=== PATIENT | male | born 1955 | race Caucasian/White ===

== ENCOUNTER 2022-08-02 07:09 | Inpatient (IN) ==
[2022-08-02 07:39] LABS: ABS Basophils 0.1 10^3/uL (0.0-0.1); ABS Eosinophils 0.1 10^3/uL (0.0-0.5); ABS Lymphocytes 1.4 10^3/uL (1.0-4.8); ABS Monocytes 1.4 10^3/uL (0.0-1.1); ABS Neutrophils 12.1 10^3/uL (1.5-7.6); Eosinophil % 0.5 %; Hematocrit 30.1 % (38-53); Hemoglobin 9.7 g/dL (13.2-16.3); Lymphocyte % 9.3 %; Mean Corpuscular Hemoglobin 26.5 pg (27-33); Mean Corpuscular Hgb Conc 32.1 g/dL (31-36); Mean Corpuscular Volume 82.5 fL (80-97); Platelet Count 618 10^3/uL (150-450); Red Blood Count 3.65 10^6/uL (4.06-5.63); Red Cell Distribution Width 14.7 % (12-17); White Blood Count 15.1 10^3/uL (3.6-10.2)
[2022-08-02 07:44] LABS: INR 1.54 (0.88-1.18)
[2022-08-02] MEDS ORDERED: Lactated Ringers 1000 ml BAG 1,000 ML IV ONE (08:40)
[2022-08-02] MEDS ORDERED: Morphine 4 MG/ML VIAL (1 ml) IV ONE ×2 (08:40→10:46)
[2022-08-02 09:13] LABS: High Sensitivity Troponin 1 Hr 10 pg/mL (<20)
[2022-08-02 09:27] LABS: Albumin 3.6 g/dL (3.2-5.2); Albumin/Globulin Ratio 1.2 (1-3); Calcium 9.6 mg/dL (8.6-10.3); Creatinine, Serum 0.8 mg/dL (0.67-1.17); Globulin 3.1 g/dL (2-4); Potassium 4.4 mmol/L (3.5-5.0); Total Bilirubin 0.6 mg/dL (0.2-1.0); Total Protein 6.7 g/dL (6.4-8.9); eGFR CKD-EPI 95.8 (>60)
[2022-08-02] MEDS ORDERED: Iohexol 350 (CONTRAST) 500 ML MDV IV ONE (10:38)
[2022-08-02] MEDS ORDERED: Heparin DRIP 25,000 UNITS BAG 25,000 UNITS/500 ML BAG IV SCH (11:45)
[2022-08-02] MEDS ORDERED: Heparin 5000 UNITS/ML 1 mL VIAL IV PRN (12:00)
[2022-08-02] MEDS ORDERED: cefTRIAXone 1 gm/50 mL D5W 1 GM/50 ML BAG IV ONE (12:02)
[2022-08-02] MEDS ORDERED: Azithromycin 500 mg/250 ml NS 500 MG/250 ML BAG IVPB ONE (12:11)
[2022-08-02] MEDS: Morphine 2 MG/ML SYRINGE IV PRN (13:08)
[2022-08-02] MEDS ORDERED: Gadoteridol (CONTRAST) 279.3 MG/ML 10 ML IV ONE (15:26)
[2022-08-02] MEDS ORDERED: Enoxaparin 80 MG/0.8 ML SYR SUBCUT SCH (15:30)
[2022-08-02] MEDS ORDERED: Albuterol 2.5mg/3 ml (0.083%) NEB.SOLN INH PRN (15:38)
[2022-08-03] MEDS ORDERED: Enoxaparin 80 MG/0.8 ML SYR SUBCUT SCH (06:00)
[2022-08-03 06:36] LABS: Calcium 9.5 mg/dL (8.6-10.3)
[2022-08-03 06:42] LABS: Creatinine, Serum 0.62 mg/dL (0.67-1.17); eGFR CKD-EPI 103.5 (>60)
[2022-08-03 06:43] LABS: ABS Basophils 0.1 10^3/uL (0.0-0.1); ABS Eosinophils 0.1 10^3/uL (0.0-0.5); ABS Lymphocytes 1.6 10^3/uL (1.0-4.8); ABS Monocytes 1.4 10^3/uL (0.0-1.1); ABS Neutrophils 9.2 10^3/uL (1.5-7.6); ABS Nucleated RBC 0.01 10^3/ul; Eosinophil % 0.9 %; Hematocrit 30.7 % (38-53); Hemoglobin 9.9 g/dL (13.2-16.3); Lymphocyte % 12.6 %; Mean Corpuscular Hemoglobin 26.5 pg (27-33); Mean Corpuscular Hgb Conc 32.4 g/dL (31-36); Mean Corpuscular Volume 81.9 fL (80-97); Mean Platelet Volume 7.4 fL (7.5-11.2); Platelet Count 494 10^3/uL (150-450); Red Blood Count 3.75 10^6/uL (4.06-5.63); Red Cell Distribution Width 14.6 % (12-17); White Blood Count 12.4 10^3/uL (3.6-10.2)
[2022-08-03] MEDS ORDERED: Heparin 5000 UNITS/ML 1 mL VIAL IV SCH (10:00)
[2022-08-03 10:29] LABS: ABS Basophils 0.1 10^3/uL (0.0-0.1); ABS Eosinophils 0.1 10^3/uL (0.0-0.5); ABS Lymphocytes 1.7 10^3/uL (1.0-4.8); ABS Monocytes 1.2 10^3/uL (0.0-1.1); ABS Neutrophils 10.6 10^3/uL (1.5-7.6); Eosinophil % 0.5 %; Hematocrit 28.3 % (38-53); Hemoglobin 8.9 g/dL (13.2-16.3); Lymphocyte % 12.4 %; Mean Corpuscular Hgb Conc 31.5 g/dL (31-36); Mean Corpuscular Volume 82.4 fL (80-97); Mean Platelet Volume 6.9 fL (7.5-11.2); Platelet Count 563 10^3/uL (150-450); Red Blood Count 3.44 10^6/uL (4.06-5.63); Red Cell Distribution Width 14.5 % (12-17); White Blood Count 13.7 10^3/uL (3.6-10.2)
[2022-08-03 10:38] LABS: Blood Urea Nitrogen 13 mg/dL (6-24); Creatinine, Serum 0.65 mg/dL (0.67-1.17)
[2022-08-03 10:54] LABS: PSA Screen Ultra Sensitive 10.376 ng/mL (0-4.000)
[2022-08-03] MEDS: Heparin DRIP 25,000 UNITS BAG 25,000 UNITS/500 ML BAG IV SCH (11:15)
[2022-08-03 11:25] LABS: % Iron Saturation 10 % (15-55); .Transferrin 146 mg/dL (203-362); Iron < 20 ug/dL (50-212); Total Iron Binding Capacity 204 mcg/dL (250-450); Unsaturated Iron Binding 184 ug/dL
[2022-08-03] MEDS: CMC:Bicalutamide 50 mg TAB (NF) PO SCH (11:31)
[2022-08-03 11:52] LABS: Vitamin B12 > 1450 pg/mL (180-914)
[2022-08-03 12:01] LABS: Ferritin > 1500.0 ng/mL (24-336)
[2022-08-03 14:32] LABS: TSH Ultra Thyroid Stim Horm 0.45 mcIU/mL (0.34-5.60)
[2022-08-03 14:53] LABS: Corrected Retic Count 1.1 % (0.5-1.5); Hematocrit for Retic CNT 27.9 % (38-53); Immature Retic Fraction 0.42; RBC Retic Count 3.38 10^6/ul (4.06-5.63)
[2022-08-03] MEDS: cefTRIAXone 1 gm/50 mL D5W 1 GM/50 ML BAG IV SCH (15:04)
[2022-08-03] MEDS ORDERED: Gadoteridol (CONTRAST) 279.3 MG/ML 10 ML IV ONE (21:42)
[2022-08-04 07:38] LABS: ABS Basophils 0.1 10^3/uL (0.0-0.1); ABS Eosinophils 0.1 10^3/uL (0.0-0.5); ABS Lymphocytes 1.4 10^3/uL (1.0-4.8); ABS Monocytes 1.4 10^3/uL (0.0-1.1); ABS Neutrophils 11.4 10^3/uL (1.5-7.6); ABS Nucleated RBC 0.01 10^3/ul; Eosinophil % 0.9 %; Hematocrit 28.1 % (38-53); Lymphocyte % 9.6 %; Mean Corpuscular Hemoglobin 26.3 pg (27-33); Mean Corpuscular Hgb Conc 32.1 g/dL (31-36); Mean Corpuscular Volume 82.1 fL (80-97); Mean Platelet Volume 7.1 fL (7.5-11.2); Platelet Count 556 10^3/uL (150-450); Red Blood Count 3.42 10^6/uL (4.06-5.63); Red Cell Distribution Width 14.6 % (12-17); White Blood Count 14.3 10^3/uL (3.6-10.2)
[2022-08-04 07:58] LABS: Calcium 9.8 mg/dL (8.6-10.3); Creatinine, Serum 0.65 mg/dL (0.67-1.17); Potassium 3.8 mmol/L (3.5-5.0)
[2022-08-04] MEDS: CMC:Bicalutamide 50 mg TAB (NF) PO SCH (09:42)
[2022-08-04] MEDS: Heparin DRIP 25,000 UNITS BAG 25,000 UNITS/500 ML BAG IV SCH (10:50)
[2022-08-04] MEDS: Morphine ER 15 mg TAB ** extended release PO SCH ×2 (13:13→19:23)
[2022-08-04] MEDS: cefTRIAXone 1 gm/50 mL D5W 1 GM/50 ML BAG IV SCH (13:15)
[2022-08-04] MEDS: Morphine 2 MG/ML SYRINGE IV PRN ×2 (16:56→19:26)
[2022-08-05] MEDS: Morphine ER 15 mg TAB ** extended release PO SCH ×3 (01:40→18:22)
[2022-08-05 06:13] LABS: ABS Basophils 0.1 10^3/uL (0.0-0.1); ABS Eosinophils 0.2 10^3/uL (0.0-0.5); ABS Lymphocytes 1.4 10^3/uL (1.0-4.8); ABS Monocytes 1.3 10^3/uL (0.0-1.1); ABS Neutrophils 9.7 10^3/uL (1.5-7.6); Eosinophil % 1.3 %; Hematocrit 25.1 % (38-53); Hemoglobin 8.2 g/dL (13.2-16.3); Lymphocyte % 11.1 %; Mean Corpuscular Hemoglobin 26.2 pg (27-33); Mean Corpuscular Hgb Conc 32.9 g/dL (31-36); Mean Corpuscular Volume 79.7 fL (80-97); Platelet Count 511 10^3/uL (150-450); Red Blood Count 3.15 10^6/uL (4.06-5.63); Red Cell Distribution Width 15.3 % (12-17); White Blood Count 12.8 10^3/uL (3.6-10.2)
[2022-08-05 06:27] LABS: Calcium 9.5 mg/dL (8.6-10.3); Creatinine, Serum 0.62 mg/dL (0.67-1.17); eGFR CKD-EPI 103.5 (>60)
[2022-08-05] MEDS: CMC:Bicalutamide 50 mg TAB (NF) PO SCH (09:51)
[2022-08-05] MEDS: Heparin DRIP 25,000 UNITS BAG 25,000 UNITS/500 ML BAG IV SCH (10:43)
[2022-08-05] MEDS: Morphine ORAL CONCENTRATE 5 MG/0.25 ML ORAL.SYRIN PO PRN ×2 (12:52→18:21)
[2022-08-05] MEDS: cefTRIAXone 1 gm/50 mL D5W 1 GM/50 ML BAG IV SCH (14:34)
[2022-08-06] MEDS: Morphine ER 15 mg TAB ** extended release PO SCH ×3 (01:57→18:24)
[2022-08-06] MEDS: Morphine ORAL CONCENTRATE 5 MG/0.25 ML ORAL.SYRIN PO PRN ×4 (03:58→18:22)
[2022-08-06 06:13] LABS: ABS Basophils 0.1 10^3/uL (0.0-0.1); ABS Eosinophils 0.2 10^3/uL (0.0-0.5); ABS Lymphocytes 1.2 10^3/uL (1.0-4.8); ABS Monocytes 1.2 10^3/uL (0.0-1.1); ABS Neutrophils 10.5 10^3/uL (1.5-7.6); Eosinophil % 1.9 %; Hematocrit 25.4 % (38-53); Hemoglobin 8.4 g/dL (13.2-16.3); Lymphocyte % 9.4 %; Mean Corpuscular Hemoglobin 26.6 pg (27-33); Mean Corpuscular Volume 80.7 fL (80-97); Platelet Count 551 10^3/uL (150-450); Red Blood Count 3.15 10^6/uL (4.06-5.63); Red Cell Distribution Width 14.9 % (12-17); White Blood Count 13.2 10^3/uL (3.6-10.2)
[2022-08-06 06:28] LABS: Calcium 9.6 mg/dL (8.6-10.3); Creatinine, Serum 0.83 mg/dL (0.67-1.17); Potassium 4.3 mmol/L (3.5-5.0); eGFR CKD-EPI 94.7 (>60)
[2022-08-06] MEDS: CMC:Bicalutamide 50 mg TAB (NF) PO SCH (08:37)
[2022-08-06] MEDS: Heparin DRIP 25,000 UNITS BAG 25,000 UNITS/500 ML BAG IV SCH (08:53)
[2022-08-06] MEDS: cefTRIAXone 1 gm/50 mL D5W 1 GM/50 ML BAG IV SCH (13:39)
[2022-08-07] MEDS: Morphine ER 15 mg TAB ** extended release PO SCH ×3 (01:51→18:06)
[2022-08-07 06:24] LABS: ABS Basophils 0.1 10^3/uL (0.0-0.1); ABS Eosinophils 0.3 10^3/uL (0.0-0.5); ABS Lymphocytes 1.3 10^3/uL (1.0-4.8); ABS Monocytes 1.2 10^3/uL (0.0-1.1); ABS Neutrophils 10.1 10^3/uL (1.5-7.6); ABS Nucleated RBC 0.01 10^3/ul; Eosinophil % 2.3 %; Hematocrit 26.7 % (38-53); Hemoglobin 8.8 g/dL (13.2-16.3); Lymphocyte % 10.3 %; Mean Corpuscular Hgb Conc 32.8 g/dL (31-36); Mean Corpuscular Volume 79.4 fL (80-97); Mean Platelet Volume 7.1 fL (7.5-11.2); Nucleated Red Blood Cells % 0.1 /100 WBC (0.0-0.4); Platelet Count 619 10^3/uL (150-450); Red Blood Count 3.37 10^6/uL (4.06-5.63); Red Cell Distribution Width 15.4 % (12-17); White Blood Count 13.1 10^3/uL (3.6-10.2)
[2022-08-07 06:42] LABS: Calcium 9.9 mg/dL (8.6-10.3); Creatinine, Serum 0.73 mg/dL (0.67-1.17); eGFR CKD-EPI 98.5 (>60)
[2022-08-07] MEDS: Heparin DRIP 25,000 UNITS BAG 25,000 UNITS/500 ML BAG IV SCH (08:38)
[2022-08-07] MEDS: CMC:Bicalutamide 50 mg TAB (NF) PO SCH (08:43)
[2022-08-07] MEDS: Morphine ORAL CONCENTRATE 5 MG/0.25 ML ORAL.SYRIN PO PRN ×3 (08:48→19:11)
[2022-08-07] MEDS: cefTRIAXone 1 gm/50 mL D5W 1 GM/50 ML BAG IV SCH (13:53)
[2022-08-08] MEDS: Morphine ER 15 mg TAB ** extended release PO SCH ×3 (02:13→17:50)
[2022-08-08 06:09] LABS: ABS Basophils 0.1 10^3/uL (0.0-0.1); ABS Eosinophils 0.2 10^3/uL (0.0-0.5); ABS Lymphocytes 1.4 10^3/uL (1.0-4.8); ABS Monocytes 1.1 10^3/uL (0.0-1.1); ABS Neutrophils 11.3 10^3/uL (1.5-7.6); Eosinophil % 1.3 %; Hemoglobin 8.5 g/dL (13.2-16.3); Mean Corpuscular Hemoglobin 26.3 pg (27-33); Mean Corpuscular Hgb Conc 32.7 g/dL (31-36); Mean Corpuscular Volume 80.4 fL (80-97); Platelet Count 636 10^3/uL (150-450); Red Blood Count 3.23 10^6/uL (4.06-5.63); Red Cell Distribution Width 15.1 % (12-17); White Blood Count 14.1 10^3/uL (3.6-10.2)
[2022-08-08] MEDS: Heparin DRIP 25,000 UNITS BAG 25,000 UNITS/500 ML BAG IV SCH (07:13)
[2022-08-08] MEDS: Morphine ORAL CONCENTRATE 5 MG/0.25 ML ORAL.SYRIN PO PRN ×2 (09:27→16:16)
[2022-08-08] MEDS: CMC:Bicalutamide 50 mg TAB (NF) PO SCH (09:27)
[2022-08-08 11:00] LABS: INR 1.6 (0.88-1.18)
[2022-08-08] MEDS ORDERED: Sodium Phosphate ADULT ENEMA 133 ML BTL PR PRN (11:30)
[2022-08-08] MEDS ORDERED: fentaNYL 100 mcg/2 ml 50 MCG/ML VIAL ONE (13:07)
[2022-08-08] MEDS ORDERED: Midazolam 2 mg/2 ml VIAL 1 mg/ml 2 ml VIAL (2 mg) ONE (13:07)
[2022-08-08] MEDS: cefTRIAXone 1 gm/50 mL D5W 1 GM/50 ML BAG IV SCH (16:16)
[2022-08-09] MEDS: Morphine ER 15 mg TAB ** extended release PO SCH ×3 (01:48→17:43)
[2022-08-09 05:53] LABS: ABS Basophils 0.1 10^3/uL (0.0-0.1); ABS Eosinophils 0.2 10^3/uL (0.0-0.5); ABS Lymphocytes 0.8 10^3/uL (1.0-4.8); ABS Monocytes 1.2 10^3/uL (0.0-1.1); ABS Neutrophils 12.3 10^3/uL (1.5-7.6); ABS Nucleated RBC 0.02 10^3/ul; Eosinophil % 1.1 %; Hematocrit 24.3 % (38-53); Hemoglobin 7.9 g/dL (13.2-16.3); Lymphocyte % 5.8 %; Mean Corpuscular Hemoglobin 25.7 pg (27-33); Mean Corpuscular Hgb Conc 32.6 g/dL (31-36); Mean Corpuscular Volume 79.1 fL (80-97); Nucleated Red Blood Cells % 0.1 /100 WBC (0.0-0.4); Platelet Count 568 10^3/uL (150-450); Red Blood Count 3.07 10^6/uL (4.06-5.63); Red Cell Distribution Width 15.7 % (12-17); White Blood Count 14.5 10^3/uL (3.6-10.2)
[2022-08-09 06:10] LABS: Calcium 10.2 mg/dL (8.6-10.3); Creatinine, Serum 0.81 mg/dL (0.67-1.17); Potassium 4.5 mmol/L (3.5-5.0); eGFR CKD-EPI 95.4 (>60)
[2022-08-09] MEDS: CMC:Bicalutamide 50 mg TAB (NF) PO SCH (08:45)
[2022-08-09] MEDS ORDERED: LEUPROLIDE ACETATE 7.5 MG IM ONE (11:23)
[2022-08-09] MEDS: Morphine 2 MG/ML SYRINGE IV PRN (20:14)
[2022-08-10] MEDS: Morphine ER 15 mg TAB ** extended release PO SCH ×3 (01:54→18:07)
[2022-08-10 06:04] LABS: ABS Eosinophils 0.1 10^3/uL (0.0-0.5); ABS Lymphocytes 0.5 10^3/uL (1.0-4.8); ABS Monocytes 1.3 10^3/uL (0.0-1.1); ABS Neutrophils 11.6 10^3/uL (1.5-7.6); Eosinophil % 0.9 %; Hematocrit 22.4 % (38-53); Hemoglobin 7.5 g/dL (13.2-16.3); Mean Corpuscular Hemoglobin 26.4 pg (27-33); Mean Corpuscular Hgb Conc 33.3 g/dL (31-36); Mean Corpuscular Volume 79.3 fL (80-97); Mean Platelet Volume 7.2 fL (7.5-11.2); Platelet Count 531 10^3/uL (150-450); Red Blood Count 2.83 10^6/uL (4.06-5.63); Red Cell Distribution Width 15.6 % (12-17); White Blood Count 13.5 10^3/uL (3.6-10.2)
[2022-08-10 06:25] LABS: Calcium 9.8 mg/dL (8.6-10.3); Potassium 4.4 mmol/L (3.5-5.0)
[2022-08-10 06:30] LABS: Creatinine, Serum 0.76 mg/dL (0.67-1.17); eGFR CKD-EPI 97.3 (>60)
[2022-08-10] MEDS: CMC:Bicalutamide 50 mg TAB (NF) PO SCH (09:05)
[2022-08-10] MEDS: Morphine 2 MG/ML SYRINGE IV PRN (20:06)
[2022-08-10] MEDS: Morphine ORAL CONCENTRATE 5 MG/0.25 ML ORAL.SYRIN PO PRN (21:24)
[2022-08-11] MEDS: Morphine ER 15 mg TAB ** extended release PO SCH ×3 (02:08→18:29)
[2022-08-11 06:12] LABS: ABS Basophils 0.1 10^3/uL (0.0-0.1); ABS Eosinophils 0.1 10^3/uL (0.0-0.5); ABS Lymphocytes 0.7 10^3/uL (1.0-4.8); ABS Monocytes 1.4 10^3/uL (0.0-1.1); ABS Neutrophils 13.4 10^3/uL (1.5-7.6); Eosinophil % 0.8 %; Hemoglobin 8.7 g/dL (13.2-16.3); Lymphocyte % 4.5 %; Mean Corpuscular Hemoglobin 25.6 pg (27-33); Mean Corpuscular Hgb Conc 32.2 g/dL (31-36); Mean Corpuscular Volume 79.5 fL (80-97); Mean Platelet Volume 7.4 fL (7.5-11.2); Platelet Count 530 10^3/uL (150-450); White Blood Count 15.7 10^3/uL (3.6-10.2)
[2022-08-11 06:28] LABS: Calcium 10.4 mg/dL (8.6-10.3); Creatinine, Serum 0.77 mg/dL (0.67-1.17); Potassium 4.4 mmol/L (3.5-5.0); eGFR CKD-EPI 96.9 (>60)
[2022-08-11] MEDS: CMC:Bicalutamide 50 mg TAB (NF) PO SCH (10:50)
[2022-08-11] MEDS: Lidocaine PATCH 5% PATCH TRANSDERM SCH (13:12)
[2022-08-11 14:49] LABS: Urine Appearance Clear; Urine Bilirubin Negative (Negative); Urine Blood Negative (Negative); Urine Color Amber; Urine Glucose Negative (Negative); Urine Ketones Negative (Negative); Urine Nitrite Negative (Negative); Urine Protein Negative (Negative); Urine Specific Gravity 1.018 (1.002-1.030); Urine Urobilinogen Negative (Negative)
[2022-08-11] MEDS: Morphine 2 MG/ML SYRINGE IV PRN (20:15)
[2022-08-12] MEDS: Morphine ER 15 mg TAB ** extended release PO SCH ×3 (02:04→18:03)
[2022-08-12] MEDS: Morphine 2 MG/ML SYRINGE IV PRN ×4 (06:11→22:50)
[2022-08-12 06:31] LABS: ABS Basophils 0.1 10^3/uL (0.0-0.1); ABS Eosinophils 0.2 10^3/uL (0.0-0.5); ABS Lymphocytes 0.6 10^3/uL (1.0-4.8); ABS Monocytes 1.2 10^3/uL (0.0-1.1); ABS Neutrophils 11.6 10^3/uL (1.5-7.6); ABS Nucleated RBC 0.01 10^3/ul; Eosinophil % 1.5 %; Hematocrit 25.1 % (38-53); Hemoglobin 8.2 g/dL (13.2-16.3); Lymphocyte % 4.7 %; Mean Corpuscular Hgb Conc 32.6 g/dL (31-36); Mean Corpuscular Volume 79.8 fL (80-97); Mean Platelet Volume 7.6 fL (7.5-11.2); Nucleated Red Blood Cells % 0.1 /100 WBC (0.0-0.4); Platelet Count 530 10^3/uL (150-450); Red Blood Count 3.14 10^6/uL (4.06-5.63); Red Cell Distribution Width 16.8 % (12-17); White Blood Count 13.7 10^3/uL (3.6-10.2)
[2022-08-12 06:45] LABS: Calcium 10.3 mg/dL (8.6-10.3); Creatinine, Serum 0.8 mg/dL (0.67-1.17); Potassium 4.6 mmol/L (3.5-5.0); eGFR CKD-EPI 95.8 (>60)
[2022-08-12] MEDS: Polyethylene Glycol 3350 17 GM PACKET PO PRN (09:10)
[2022-08-12] MEDS: Lidocaine PATCH 5% PATCH TRANSDERM SCH ×2 (09:12→09:26)
[2022-08-12] MEDS: CMC:Bicalutamide 50 mg TAB (NF) PO SCH (09:12)
[2022-08-12] MEDS ORDERED: Saline NASAL SPRAY 0.65% BTL BOTH NARES PRN (09:16)
[2022-08-12] MEDS ORDERED: NS 0.9% 1000 ml BAG 1,000 ML IV SCH (12:00)
[2022-08-12] MEDS: Morphine ORAL CONCENTRATE 5 MG/0.25 ML ORAL.SYRIN PO PRN (21:26)
[2022-08-13] MEDS: Morphine ER 15 mg TAB ** extended release PO SCH ×3 (01:50→18:12)
[2022-08-13] MEDS: Morphine 2 MG/ML SYRINGE IV PRN ×5 (06:06→22:07)
[2022-08-13 06:15] LABS: ABS Basophils 0.1 10^3/uL (0.0-0.1); ABS Eosinophils 0.3 10^3/uL (0.0-0.5); ABS Lymphocytes 0.6 10^3/uL (1.0-4.8); ABS Monocytes 1.2 10^3/uL (0.0-1.1); ABS Neutrophils 9.7 10^3/uL (1.5-7.6); ABS Nucleated RBC 0.01 10^3/ul; Eosinophil % 2.4 %; Hematocrit 22.7 % (38-53); Hemoglobin 7.3 g/dL (13.2-16.3); Mean Corpuscular Hemoglobin 26.1 pg (27-33); Mean Corpuscular Hgb Conc 32.3 g/dL (31-36); Mean Corpuscular Volume 80.7 fL (80-97); Mean Platelet Volume 7.5 fL (7.5-11.2); Nucleated Red Blood Cells % 0.1 /100 WBC (0.0-0.4); Platelet Count 493 10^3/uL (150-450); Red Blood Count 2.82 10^6/uL (4.06-5.63); Red Cell Distribution Width 16.9 % (12-17); White Blood Count 11.8 10^3/uL (3.6-10.2)
[2022-08-13 06:39] LABS: Albumin 2.8 g/dL (3.2-5.2); Albumin/Globulin Ratio 0.7 (1-3); Calcium 9.7 mg/dL (8.6-10.3); Creatinine, Serum 0.7 mg/dL (0.67-1.17); Potassium 4.3 mmol/L (3.5-5.0); Total Bilirubin 3.1 mg/dL (0.2-1.0); Total Protein 6.8 g/dL (6.4-8.9); eGFR CKD-EPI 99.7 (>60)
[2022-08-13] MEDS: Lidocaine PATCH 5% PATCH TRANSDERM SCH (09:31)
[2022-08-13] MEDS: CMC:Bicalutamide 50 mg TAB (NF) PO SCH (09:35)
[2022-08-13 10:59] LABS: Direct Bilirubin 1.9 mg/dL (0.03-0.18); Indirect Bilirubin 1.2 mg/dL (0.3-1.0); Total Bilirubin 3.1 mg/dL (0.2-1.0)
[2022-08-13] MEDS ORDERED: Morphine 2 MG/ML SYRINGE IV ONE (11:25)
[2022-08-13 13:38] LABS: High Sensitivity Troponin 1 Hr 35 pg/mL (<20)
[2022-08-13] MEDS ORDERED: Al Hydrox/Mg Hydrox/Simet LIQ 30 ML UDC PO ONE (14:58)
[2022-08-13 15:51] LABS: Hematocrit for Retic CNT 22.8 % (38-53); Immature Retic Fraction 0.49; RBC Retic Count 2.82 10^6/ul (4.06-5.63)
[2022-08-13] MEDS: Morphine ORAL CONCENTRATE 5 MG/0.25 ML ORAL.SYRIN PO PRN (16:23)
[2022-08-13 16:29] LABS: Hematocrit 30.4 % (38-53)
[2022-08-13 18:03] LABS: High Sensitivity Troponin 1 Hr 64 pg/mL (<20)
[2022-08-13] MEDS ORDERED: Al Hydrox/Mg Hydrox/Simet LIQ 30 ML UDC PO PRN (18:11)
[2022-08-14] MEDS: Morphine ER 15 mg TAB ** extended release PO SCH ×3 (02:16→18:26)
[2022-08-14 06:14] LABS: ABS Eosinophils 0.2 10^3/uL (0.0-0.5); ABS Lymphocytes 0.7 10^3/uL (1.0-4.8); ABS Monocytes 1.4 10^3/uL (0.0-1.1); ABS Neutrophils 11.4 10^3/uL (1.5-7.6); ABS Nucleated RBC 0.01 10^3/ul; Eosinophil % 1.2 %; Hematocrit 29.2 % (38-53); Hemoglobin 9.9 g/dL (13.2-16.3); Lymphocyte % 5.1 %; Mean Corpuscular Hemoglobin 27.4 pg (27-33); Mean Corpuscular Hgb Conc 33.8 g/dL (31-36); Mean Corpuscular Volume 81.1 fL (80-97); Mean Platelet Volume 7.5 fL (7.5-11.2); Platelet Count 542 10^3/uL (150-450); Red Blood Count 3.61 10^6/uL (4.06-5.63); Red Cell Distribution Width 18.2 % (12-17); White Blood Count 13.6 10^3/uL (3.6-10.2)
[2022-08-14 06:43] LABS: Calcium 10.4 mg/dL (8.6-10.3); Creatinine, Serum 0.91 mg/dL (0.67-1.17); Magnesium 2.2 mg/dL (1.9-2.7); Phosphorus 4.5 mg/dL (2.5-5.0); Potassium 4.6 mmol/L (3.5-5.0); eGFR CKD-EPI 91.2 (>60)
[2022-08-14] MEDS: Lidocaine PATCH 5% PATCH TRANSDERM SCH (08:10)
[2022-08-14] MEDS: CMC:Bicalutamide 50 mg TAB (NF) PO SCH (08:14)
[2022-08-14] MEDS: Morphine 2 MG/ML SYRINGE IV PRN ×4 (08:15→21:37)
[2022-08-14 10:22] LABS: Total Bilirubin 6.1 mg/dL (0.2-1.0)
[2022-08-14] MEDS: Morphine ORAL CONCENTRATE 5 MG/0.25 ML ORAL.SYRIN PO PRN ×2 (11:53→16:14)
[2022-08-14 17:20] LABS: Indirect Bilirubin 2.1 mg/dL (0.3-1.0)
[2022-08-15] MEDS: Morphine ER 15 mg TAB ** extended release PO SCH ×3 (02:12→17:23)
[2022-08-15 06:15] LABS: ABS Eosinophils 0.2 10^3/uL (0.0-0.5); ABS Lymphocytes 0.8 10^3/uL (1.0-4.8); ABS Monocytes 1.2 10^3/uL (0.0-1.1); ABS Neutrophils 10.1 10^3/uL (1.5-7.6); ABS Nucleated RBC 0.01 10^3/ul; Hematocrit 27.3 % (38-53); Hemoglobin 9.1 g/dL (13.2-16.3); INR 3.25 (0.88-1.18); Lymphocyte % 6.3 %; Mean Corpuscular Hemoglobin 26.8 pg (27-33); Mean Corpuscular Hgb Conc 33.2 g/dL (31-36); Mean Corpuscular Volume 80.7 fL (80-97); Mean Platelet Volume 7.6 fL (7.5-11.2); Platelet Count 474 10^3/uL (150-450); Red Blood Count 3.39 10^6/uL (4.06-5.63); Red Cell Distribution Width 18.5 % (12-17); White Blood Count 12.4 10^3/uL (3.6-10.2)
[2022-08-15 06:39] LABS: Albumin 2.6 g/dL (3.2-5.2); Albumin/Globulin Ratio 0.7 (1-3); Creatinine, Serum 0.8 mg/dL (0.67-1.17); Direct Bilirubin 2.8 mg/dL (0.03-0.18); Potassium 4.7 mmol/L (3.5-5.0); Total Bilirubin 4.7 mg/dL (0.2-1.0); Total Protein 6.6 g/dL (6.4-8.9); eGFR CKD-EPI 95.8 (>60)
[2022-08-15] MEDS ORDERED: Metoprolol Tartrate 5 mg VIAL 5 ml VIAL (1 mg/ml) IV ONE (08:02)
[2022-08-15] MEDS: Lidocaine PATCH 5% PATCH TRANSDERM SCH (08:43)
[2022-08-15] MEDS: CMC:Bicalutamide 50 mg TAB (NF) PO SCH (08:48)
[2022-08-15] MEDS: Morphine 2 MG/ML SYRINGE IV PRN ×5 (10:13→20:42)
[2022-08-15] MEDS: Morphine ORAL CONCENTRATE 5 MG/0.25 ML ORAL.SYRIN PO PRN ×2 (11:46→20:43)
[2022-08-16] MEDS: Morphine ER 15 mg TAB ** extended release PO SCH ×3 (01:42→18:14)
[2022-08-16] MEDS: Morphine 2 MG/ML SYRINGE IV PRN ×5 (05:36→23:14)
[2022-08-16] MEDS: Morphine ORAL CONCENTRATE 5 MG/0.25 ML ORAL.SYRIN PO PRN ×4 (05:36→23:14)
[2022-08-16 06:59] LABS: ABS Basophils 0.1 10^3/uL (0.0-0.1); ABS Eosinophils 0.2 10^3/uL (0.0-0.5); ABS Lymphocytes 0.5 10^3/uL (1.0-4.8); ABS Monocytes 1.1 10^3/uL (0.0-1.1); ABS Neutrophils 10.2 10^3/uL (1.5-7.6); ABS Nucleated RBC 0.01 10^3/ul; Eosinophil % 1.3 %; Hematocrit 26.4 % (38-53); Hemoglobin 8.8 g/dL (13.2-16.3); Lymphocyte % 4.3 %; Mean Corpuscular Hemoglobin 27.2 pg (27-33); Mean Corpuscular Hgb Conc 33.5 g/dL (31-36); Mean Corpuscular Volume 81.1 fL (80-97); Mean Platelet Volume 7.6 fL (7.5-11.2); Nucleated Red Blood Cells % 0.1 /100 WBC (0.0-0.4); Platelet Count 418 10^3/uL (150-450); Red Blood Count 3.25 10^6/uL (4.06-5.63)
[2022-08-16 07:17] LABS: Albumin 2.5 g/dL (3.2-5.2); Albumin/Globulin Ratio 0.7 (1-3); Calcium 10.1 mg/dL (8.6-10.3); Creatinine, Serum 0.87 mg/dL (0.67-1.17); Globulin 3.8 g/dL (2-4); Potassium 4.9 mmol/L (3.5-5.0); Total Bilirubin 3.3 mg/dL (0.2-1.0); Total Protein 6.3 g/dL (6.4-8.9); eGFR CKD-EPI 93.4 (>60)
[2022-08-16] MEDS: Lidocaine PATCH 5% PATCH TRANSDERM SCH (08:03)
[2022-08-16] MEDS: CMC:Bicalutamide 50 mg TAB (NF) PO SCH (08:03)
[2022-08-16 10:55] LABS: INR 2.46 (0.88-1.18)
[2022-08-16 21:14] LABS: Urine Osmo 466 mOsm/kg (150-1150)
[2022-08-17] MEDS: Morphine ER 15 mg TAB ** extended release PO SCH ×3 (02:30→18:43)
[2022-08-17 06:23] LABS: ABS Basophils 0.1 10^3/uL (0.0-0.1); ABS Eosinophils 0.2 10^3/uL (0.0-0.5); ABS Lymphocytes 0.5 10^3/uL (1.0-4.8); ABS Monocytes 1.3 10^3/uL (0.0-1.1); Eosinophil % 1.4 %; Hematocrit 26.7 % (38-53); Hemoglobin 8.9 g/dL (13.2-16.3); Lymphocyte % 4.3 %; Mean Corpuscular Hemoglobin 27.1 pg (27-33); Mean Corpuscular Hgb Conc 33.2 g/dL (31-36); Mean Corpuscular Volume 81.5 fL (80-97); Mean Platelet Volume 7.9 fL (7.5-11.2); Platelet Count 400 10^3/uL (150-450); Red Blood Count 3.27 10^6/uL (4.06-5.63); Red Cell Distribution Width 19.9 % (12-17)
[2022-08-17 06:30] LABS: INR 2.41 (0.88-1.18)
[2022-08-17 06:49] LABS: Albumin 2.7 g/dL (3.2-5.2); Albumin/Globulin Ratio 0.7 (1-3); Calcium 10.4 mg/dL (8.6-10.3); Creatinine, Serum 0.93 mg/dL (0.67-1.17); Globulin 3.8 g/dL (2-4); Potassium 5.3 mmol/L (3.5-5.0); Total Bilirubin 2.9 mg/dL (0.2-1.0); Total Protein 6.5 g/dL (6.4-8.9); eGFR CKD-EPI 88.9 (>60)
[2022-08-17] MEDS ORDERED: NS 0.9% 1000 ml BAG 1,000 ML IV SCH (07:30)
[2022-08-17] MEDS: CMC:Bicalutamide 50 mg TAB (NF) PO SCH (08:58)
[2022-08-17] MEDS: Lidocaine PATCH 5% PATCH TRANSDERM SCH (09:01)
[2022-08-17] MEDS: Morphine 2 MG/ML SYRINGE IV PRN ×4 (09:34→18:43)
[2022-08-17] MEDS: Morphine ORAL CONCENTRATE 5 MG/0.25 ML ORAL.SYRIN PO PRN ×3 (13:14→21:28)
[2022-08-17] MEDS ORDERED: Morphine ORAL CONCENTRATE 5 MG/0.25 ML ORAL.SYRIN PO PRN (19:19)
[2022-08-18] MEDS: Morphine ER 15 mg TAB ** extended release PO SCH (02:48)
[2022-08-18 07:32] LABS: Calcium 10.1 mg/dL (8.6-10.3); Creatinine, Serum 0.88 mg/dL (0.67-1.17); Potassium 4.8 mmol/L (3.5-5.0); eGFR CKD-EPI 93.1 (>60)
[2022-08-18] MEDS: Morphine ORAL CONCENTRATE 5 MG/0.25 ML ORAL.SYRIN PO PRN ×5 (07:55→22:33)
[2022-08-18] MEDS: Senna TAB 8.6 mg TAB PO PRN (08:28)
[2022-08-18] MEDS: Polyethylene Glycol 3350 17 GM PACKET PO PRN (08:28)
[2022-08-18] MEDS: Morphine ER 30 mg TAB ** extended release PO SCH ×2 (08:28→20:58)
[2022-08-18] MEDS: CMC:Bicalutamide 50 mg TAB (NF) PO SCH (08:30)
[2022-08-18] MEDS: Lidocaine PATCH 5% PATCH TRANSDERM SCH (08:30)
[2022-08-18] MEDS: Magnesium Hydroxide LIQ 30 ML UDC PO PRN (08:31)
[2022-08-19] MEDS: Morphine ORAL CONCENTRATE 5 MG/0.25 ML ORAL.SYRIN PO PRN ×3 (07:17→16:17)
[2022-08-19] MEDS: Magnesium Hydroxide LIQ 30 ML UDC PO PRN (09:10)
[2022-08-19] MEDS: Morphine ER 30 mg TAB ** extended release PO SCH ×2 (09:10→20:34)
[2022-08-19] MEDS: Polyethylene Glycol 3350 17 GM PACKET PO SCH (09:10)
[2022-08-19] MEDS: Senna TAB 8.6 mg TAB PO PRN (09:12)
[2022-08-19] MEDS: Lidocaine PATCH 5% PATCH TRANSDERM SCH (09:13)
[2022-08-19] MEDS: CMC:Bicalutamide 50 mg TAB (NF) PO SCH (09:13)
[2022-08-19] MEDS ORDERED: Lidocaine PATCH 5% PATCH ONE (13:00)
[2022-08-20] MEDS: Morphine ORAL CONCENTRATE 5 MG/0.25 ML ORAL.SYRIN PO PRN ×7 (00:06→20:49)
[2022-08-20] MEDS: Lidocaine PATCH 5% PATCH TRANSDERM SCH (08:17)
[2022-08-20] MEDS: Polyethylene Glycol 3350 17 GM PACKET PO SCH (08:17)
[2022-08-20] MEDS: CMC:Bicalutamide 50 mg TAB (NF) PO SCH (08:18)
[2022-08-20] MEDS: Morphine ER 30 mg TAB ** extended release PO SCH ×2 (08:18→20:49)
[2022-08-20] MEDS ORDERED: CMCS:Methylnaltrexone SQ (NF) 12 MG/0.6 ML VIAL SUBCUT ONE (13:20)
[2022-08-21] MEDS: Morphine ORAL CONCENTRATE 5 MG/0.25 ML ORAL.SYRIN PO PRN ×4 (00:44→10:12)
[2022-08-21 06:23] VITALS: BP 116/56
[2022-08-21] MEDS: CMC:Bicalutamide 50 mg TAB (NF) PO SCH (08:51)
[2022-08-21] MEDS: Lidocaine PATCH 5% PATCH TRANSDERM SCH (08:51)
[2022-08-21] MEDS: Morphine ER 30 mg TAB ** extended release PO SCH (08:52)
[2022-08-21] MEDS: Polyethylene Glycol 3350 17 GM PACKET PO SCH (08:54)
== END 2022-08-21 10:20 | disposition home or self-care (01) | DRG 853 ==
LOC: ED 07:09 → EDHOLD 07:09 → SUATTDRO 12:13 → EDHOLD 14:54 → MEDTELE 16:22 → SUATTDRO 08-03 15:38
PROVIDERS: ADMIT Internal Medicine; ATTEND Hospitalist